=== PATIENT | female | born 1970 | race African-American/Black ===

== ENCOUNTER → 2017-02-08 | Outpatient (CLI) | payer OTHER | LOC: FIMAGING 17:22 | PROVIDERS: ATTEND Allergy & Immunology Allergy | DX: R06.09 Other forms of dyspnea (principal) ==

== ENCOUNTER → 2017-05-13 | Outpatient (CLI) | payer OTHER ==
[~2017-05-13] MED LIST: IOPAMIDOL (ISOVUE 370) 100 ML BTL IV ONE
== END ==
LOC: FIMAGING 15:06
PROVIDERS: ATTEND Obstetrics & Gynecology
DX: Z12.31 Encounter for screening mammogram for malignant neoplasm of breast (principal); R06.02 Shortness of breath; J40 Bronchitis, not specified as acute or chronic; R91.1 Solitary pulmonary nodule; Z80.9 Family history of malignant neoplasm, unspecified
CPT/HCPCS: G0202; Q9967

== ENCOUNTER → 2018-06-27 | Outpatient (CLI) | payer OTHER | LOC: FIMAGING 11:12 | PROVIDERS: ATTEND Obstetrics & Gynecology | DX: Z12.31 Encounter for screening mammogram for malignant neoplasm of breast (principal); Z80.3 Family history of malignant neoplasm of breast ==

== ENCOUNTER 2018-07-06 14:00 | Emergency (ER) | payer OTHER ==
--- NOTE | 2018-07-06 14:43 | EDPHY ---
H & P Time Seen by Provider: 07/06/18 14:03 HPI/ROS: CHIEF COMPLAINT: Eye redness HISTORY OF PRESENT ILLNESS: Patient states she woke up with a "blood shot" eye on the right. She says "I can see fine". She also states that in January she inadvertently turned while walking and hit her right face against a door. She did not see a doctor at the time. Since then she has had some mild pain and swelling to her right face. She also tells me that she went to have her teeth clean recently and an x-ray showed possible cyst in the upper posterior molar region. She has seen a specialist about that on Saturday. She denies any eye discharge. No foreign body. No pain to the eye. She states that she does get bloodshot eyes from allergies and this is the time for her fall allergies to start kicking up. She has no other complaints. REVIEW OF SYSTEMS: Negative except per HPI. General Appearance: Alert, no distress. Eyes: Pupils equal and round no icterus. Right eye with conjunctival injection and mild chemosis to the lateral conjunctiva. Left eye normal. No proptosis. Respiratory: No respiratory distress Neurological: Awake, alert, no focal deficits. CN's intact. Skin: Warm and dry, no rashes. Musculoskeletal: Neck is supple nontender. Extremities are symmetrical, full range of motion, no edema. Psychiatric: Patient is oriented X 3, there is no agitation. Medical/surgical history: Hypothyroid, hysterectomy, multiple food allergies. Social history: Nonsmoker. Denies drugs. Smoking Status: Never smoked Constitutional: Initial Vital Signs Temperature (C) 36.4 C 07/06/18 14:04 Heart Rate 91 07/06/18 14:04 Respiratory Rate 16 07/06/18 14:04 Blood Pressure 159/94 H 07/06/18 14:04 O2 Sat (%) 96 07/06/18 14:04 O2 Delivery Mode Room Air Allergies/Adverse Reactions: egg [eggs] Allergy (Verified 07/06/18 14:12) grass pollen Allergy (Verified 07/06/18 14:12) legumes Allergy (Verified 07/06/18 14:12) mold Allergy (Verified 07/06/18 14:12) starch Allergy (Verified 07/06/18 14:12) tree nut [Nuts] Allergy (Verified 07/06/18 14:12) wheat Allergy (Verified 07/06/18 14:12) Home Medications: Medication Instructions Recorded Ibuprofen [Motrin (*)] 600 mg PO Q6HRS #30 tab 07/20/16 Ailin Allergy 07/06/18 Tirosint 07/06/18 Medical Decision Making Differential Diagnosis: Differential diagnosis includes but is not limited to trauma, corneal abrasion, conjunctivitis, iritis, glaucoma. After evaluation suspect her conjunctival erythema is related to seasonal allergies. No suspicion or evidence of foreign body, corneal abrasion or ulcer, visual changes or central nervous system cause. Unclear reason for facial pain 5 months after injury but no evidence of entrapment, abscess, dental origin. Patient has appropriate [id number] allergy medications and discussed eyedrops options. Will see specialist on Saturday regarding dental"cyst". Stable for discharge. Departure - Departure Clinical Impression: Allergic conjunctivitis Qualifiers: Laterality: right Qualified Code(s): H10.11 - Acute atopic conjunctivitis, right eye Condition: Good Instructions: Conjunctivitis (ED) Additional Instructions: Use allergy medicines as you normally do. You can use anti allergy eyedrops as discussed. Follow up with the specialist on Saturday as scheduled. Return to the emergency department if you developed changes in vision, fevers, facial weakness or other concerning new symptoms. Referrals: NONE *PRIMARY CARE P,. [Primary Care Provider] - As per Instructions
[2018-07-06 14:44] VITALS: BP 155/79
== END 2018-07-06 14:58 | disposition home or self-care (01) ==
LOC: CED 14:00
DX: H10.11 Acute atopic conjunctivitis, right eye (principal)